=== PATIENT | male | born 2005 | race Caucasian/White ===

== ENCOUNTER 2025-02-06 18:42 | Emergency (ER) | payer OTHER ==
[~2025-02-06] VITALS: Ht 154.9 cm; Wt 75.0 kg
[2025-02-06 18:49] VITALS: BP 135/89; PULSE 98; RESP 16; O2SAT 100
[2025-02-06] MEDS: IBUPROFEN 600 MG TABLET PO ONE (19:27)
[2025-02-06] MEDS: LIDOCAINE 1% 10 ML VIAL SQ ONE (19:27)
[2025-02-06] MEDS: BACITRACIN 0.9 GM PACKET OINTMENT TP ONE (19:27)
[2025-02-06] MEDS: ACETAMINOPHEN 500 MG TABLET PO ONE (19:27)
[2025-02-06] MEDS ORDERED: CEPH-558 PO (20:02)
[2025-02-06] MEDS ORDERED: ACET-66 PO (20:02)
[2025-02-06] MEDS ORDERED: BACI28.410 TP (20:02)
[2025-02-06] MEDS ORDERED: IBUP-1554 PO (20:02)
== END 2025-02-06 20:27 | disposition home or self-care (01) ==
LOC: EMS 18:44
DX: S01.81XA Laceration without foreign body of other part of head, initial encounter (principal); Z79.899 Other long term (current) drug therapy; W54.0XXA Bitten by dog, initial encounter; Y93.89 Activity, other specified; Y92.89 Other specified places as the place of occurrence of the external cause; Y99.8 Other external cause status
CPT/HCPCS: 99283; 12013; J3490

== ENCOUNTER 2025-02-12 15:56 | Emergency (ER) | payer OTHER ==
[~2025-02-12] VITALS: Ht 154.9 cm; Wt 72.7 kg
[~2025-02-12 15:56] MED LIST: ACET-66 PO; BACI28.410 TP; CEPH-558 PO; IBUP-1554 PO
[2025-02-12 16:09] VITALS: TEMP 98.3
[2025-02-12 18:33] VITALS: BP 125/82; PULSE 68; RESP 16; O2SAT 98
== END 2025-02-12 18:46 | disposition home or self-care (01) ==
LOC: EMS 16:01
DX: S01.21XD Laceration without foreign body of nose, subsequent encounter (principal); Z79.899 Other long term (current) drug therapy
CPT/HCPCS: 99281; Z7502

== ENCOUNTER 2025-06-12 11:52 | Emergency (ER) | payer OTHER ==
[~2025-06-12] VITALS: Ht 154.9 cm; Wt 77.3 kg
[2025-06-12 12:02] VITALS: BP 131/89; PULSE 107; RESP 16; TEMP 98.3; O2SAT 99
[2025-06-12] MEDS: IBUPROFEN 600 MG TABLET PO ONE (13:40)
[2025-06-12] MEDS: ACETAMINOPHEN/CODEINE 300-30 MG TABLET PO ONE (13:40)
[2025-06-12] MEDS: BACITRACIN 0.9 GM PACKET OINTMENT TP ONE (13:40)
[2025-06-12] MEDS: LIDOCAINE 1% 10 ML VIAL SQ ONE (13:42)
[2025-06-12] MEDS ORDERED: ACET-2080 PO (13:56)
[2025-06-12] MEDS ORDERED: IBUP-1554 PO (13:56)
[2025-06-12] MEDS ORDERED: PENI500T2 PO (13:56)
== END 2025-06-12 14:12 | disposition home or self-care (01) ==
LOC: EMS 11:52
DX: S01.512A Laceration without foreign body of oral cavity, initial encounter (principal); Z79.899 Other long term (current) drug therapy; Y04.0XXA Assault by unarmed brawl or fight, initial encounter; Y93.89 Activity, other specified; Y92.89 Other specified places as the place of occurrence of the external cause; Y99.8 Other external cause status
CPT/HCPCS: 99283; 12013; J3490

== ENCOUNTER 2025-06-17 12:32 | Emergency (ER) | payer OTHER ==
[~2025-06-17] VITALS: Ht 154.9 cm; Wt 72.7 kg
[~2025-06-17 12:32] MED LIST changes: +ACET-2080 PO; +PENI500T2 PO
[2025-06-17 13:08] VITALS: BP 128/82; PULSE 75; RESP 16; TEMP 98.2; O2SAT 98
== END 2025-06-17 14:16 | disposition home or self-care (01) ==
LOC: EMS 12:32
DX: S01.511D Laceration without foreign body of lip, subsequent encounter (principal); Z79.899 Other long term (current) drug therapy; X58.XXXD Exposure to other specified factors, subsequent encounter
CPT/HCPCS: 99282; Z7502